=== PATIENT | male | born 1990 | race Caucasian/White ===

== ENCOUNTER → 2023-03-24 15:39 | Outpatient (CLI) | payer OTHER, SELFPAY ==
--- NOTE | 2023-03-24 15:39 | US_ITS ---
FINAL REPORT TECHNIQUE: Ultrasound images of the testicles were obtained bilaterally. Color Doppler images were obtained. CLINICAL HISTORY: .bilateral palpable areas FINDINGS: The testicles are homogeneous. No testicular masses are identified. The right testicle measures 4.4 x 2.0 x 2.7 cm. The left testicle measures 4.7 x 3.3 x 2.8 cm. There are well circumscribed anechoic structures in the epididymal heads bilaterally. Structure on the right measures 1.1 cm. Structure on the left measures 2.8 cm. IMPRESSION: Epididymal cysts bilaterally. Reviewed, Interpreted and Dictated by Seth Wise MD Transcribed by Marjorie Hatfield Authenticated and [facility]
== END ==
PROVIDERS: PCP Family Medicine; Visit Provider Family Medicine
DX: D40.8 Neoplasm of uncertain behavior of other specified male genital organs (principal)
CPT/HCPCS: 76870

== ENCOUNTER 2024-03-21 18:00 | Outpatient (CLI) | payer OTHER, SELFPAY ==
[2024-03-21 18:51] LABS: Basophils # 0.1 K/mm3 (0-0.2); Basophils % 0.8 % (0.1-2.0); Eosinophils # 0.1 K/mm3 (0.0-0.4); Eosinophils % 1.1 % (0.1-12.0); Hematocrit 49.3 % (42.0-52.0); Hemoglobin 16.6 g/dL (14.1-18.0); Lymphocytes # 2.2 K/mm3 (0.7-4.5); Lymphocytes % 24.3 % (10-50); Mean Corpuscular HGB Conc 33.6 g/dL (31.8-35.4); Mean Corpuscular Volume 95.3 fl (80-94); Mean Platelet Volume 8.4 fl (7.4-10.4); Monocytes # 0.5 K/mm3 (0.1-1.0); Monocytes % 5.1 % (1.7-9.3); Neutrophils # 6.3 K/mm3 (1.8-7.8); Neutrophils % 68.7 % (37.0-80.0); Platelet Count 232 K/mm3 (142-424); Red Blood Count 5.18 M/mm3 (4.60-6.20); Red Cell Distribution Width 13.1 % (11.5-17.5); White Blood Count 9.1 K/mm3 (4.8-10.8)
[2024-03-21 19:12] LABS: Alanine Aminotransferase 17 U/L (12-78); Albumin Level 5.1 g/dl (3.5-5.0); Albumin/Globulin Ratio 1.7 (1.1-1.8); Alkaline Phosphatase 65 U/L (38-126); Anion Gap 13.5 mEq/L (5-15); Aspartate Amino Transferase 40 U/L (17-59); Bilirubin,Total 1.4 mg/dl (0.2-1.3); Blood Urea Nitrogen 12 mg/dl (9-20); Carbon Dioxide 29 mmol/L (22.0-30.0); Chloride 106 mmol/L (98-107); Estimated Glomerular Filt Rate 98 ml/min (>60); GFR (African American) 118 ML/MIN (>60); Glucose 90 mg/dl (74-100); Potassium 4.5 mmoL/L (3.5-5.1); Sodium 144 mmol/L (136-145); Total Protein,Serum 8.1 g/dl (6.3-8.2)
[2024-03-21 19:30] LABS: 25-OH Vitamin D, Total 47.7 ng/mL (30-100)
[2024-03-21 19:41] LABS: Thyroid Stimulating Hormone 0.54 uIU/mL (0.465-4.68)
[2024-03-21 20:01] LABS: Vitamin B12 357 pg/mL (239-931)
[2024-03-21 21:03] LABS: Hemoglobin A1C 5.3 % (4.0-6.0)
[2024-03-25 16:39] LABS: HBsAg Screen Negative (Negative); HCV Ab Reactive (Non Reactive); Hep A Ab, IGM Negative (Negative); Hep B Core Ab, IgM Negative (Negative)
== END 2024-03-21 23:59 | disposition home or self-care (01) ==
LOC: LAB.DROPOF 03-22 12:49
PROVIDERS: PCP Nurse Practitioner; Visit Provider Nurse Practitioner
DX: R06.02 Shortness of breath (principal); K21.9 Gastro-esophageal reflux disease without esophagitis; Z13.1 Encounter for screening for diabetes mellitus; Z13.29 Encounter for screening for other suspected endocrine disorder; Z86.19 Personal history of other infectious and parasitic diseases; Z79.899 Other long term (current) drug therapy
CPT/HCPCS: 80053; 80074; 82306; 82607; 83036; 84443; 85025

== ENCOUNTER 2024-04-18 12:02 | Outpatient (CLI) | payer OTHER, SELFPAY ==
[2024-04-18 18:09] LABS: Alanine Aminotransferase 63 U/L (12-78); Albumin Level 4.3 g/dl (3.5-5.0); Albumin/Globulin Ratio 1.6 (1.1-1.8); Alkaline Phosphatase 51 U/L (38-126); Anion Gap 12.4 mEq/L (5-15); Aspartate Amino Transferase 77 U/L (17-59); Basophils % 0.7 % (0.1-2.0); Bilirubin,Total 0.8 mg/dl (0.2-1.3); Blood Urea Nitrogen 13 mg/dl (9-20); Calcium 9.5 mg/dl (8.4-10.2); Carbon Dioxide 27 mmol/L (22.0-30.0); Chloride 104 mmol/L (98-107); Eosinophils # 0.1 K/mm3 (0.0-0.4); Eosinophils % 2.7 % (0.1-12.0); Estimated Glomerular Filt Rate 98 ml/min (>60); GFR (African American) 118 ML/MIN (>60); Globulin 2.7 g/dL (1.3-3.2); Glucose 137 mg/dl (74-100); Hematocrit 48.4 % (42.0-52.0); Hemoglobin 15.3 g/dL (14.1-18.0); Lymphocytes # 1.4 K/mm3 (0.7-4.5); Lymphocytes % 28.7 % (10-50); Mean Corpuscular HGB Conc 31.7 g/dL (31.8-35.4); Mean Corpuscular Hemoglobin 31.5 pg (27.0-31.2); Mean Corpuscular Volume 99.6 fl (80-94); Mean Platelet Volume 10.1 fl (7.4-10.4); Monocytes # 0.2 K/mm3 (0.1-1.0); Monocytes % 4.8 % (1.7-9.3); Platelet Count 231 K/mm3 (142-424); Potassium 4.4 mmoL/L (3.5-5.1); Red Blood Count 4.86 M/mm3 (4.60-6.20); Red Cell Distribution Width 13.5 % (11.5-17.5); Sodium 139 mmol/L (136-145); White Blood Count 4.8 K/mm3 (4.8-10.8)
[2024-04-22 23:15] LABS: HCV Genotype Charge YES; Hepatitis C Genotype 1a (.)
[2024-04-23 08:24] LABS: HIV Screen 4th Generation wRfx Non Reactive; Hep A Ab, Total Negative; Hepatitis B Surface Antigen Negative
[2024-04-23 08:25] LABS: Hep B Core Ab, Total Negative; Hep B Surface Ab, Qual Reactive; Hepatitis C Antibody Reactive
[2024-04-23 08:26] LABS: Alpha 2-Macroglobulins, Qn 191; Fibrosis Score 0.2; Fibrosis Stage F0-NO FIBROSIS; Haptoglobin 23; Necroinflammat Activity Grade A1-A2; Necroinflammat Activity Score 0.37
[2024-04-23 08:27] LABS: ALT (SGPT) P5P 68; Apolipoprotein A-1 151; Bilirubin, Total 0.3; GGT 21
== END 2024-04-18 23:59 | disposition home or self-care (01) ==
LOC: LAB.DROPOF 04-19 12:02
PROVIDERS: PCP Nurse Practitioner Family; Visit Provider Nurse Practitioner Family
DX: Z86.19 Personal history of other infectious and parasitic diseases (principal); B18.2 Chronic viral hepatitis C; R74.01 Elevation of levels of liver transaminase levels; Z79.899 Other long term (current) drug therapy; Z11.4 Encounter for screening for human immunodeficiency virus [HIV]; Z87.898 Personal history of other specified conditions
CPT/HCPCS: 80053; 81596; 85025; 86703; 86704; 86706; 86708; 87340; 87380; 87522; 87902; G0432

== ENCOUNTER 2024-10-04 12:05 | Outpatient (CLI) | payer OTHER, SELFPAY ==
[2024-10-04 18:39] LABS: Basophils % 0.8 % (0.1-2.0); Eosinophils # 0.1 K/mm3 (0.0-0.4); Hematocrit 50.8 % (42.0-52.0); Hemoglobin 16.9 g/dL (14.1-18.0); Lymphocytes # 1.9 K/mm3 (0.7-4.5); Lymphocytes % 37.8 % (10-50); Mean Corpuscular HGB Conc 33.3 g/dL (31.8-35.4); Mean Corpuscular Hemoglobin 31.4 pg (27.0-31.2); Mean Corpuscular Volume 94.3 fl (80-94); Mean Platelet Volume 7.9 fl (7.4-10.4); Monocytes # 0.3 K/mm3 (0.1-1.0); Monocytes % 6.3 % (1.7-9.3); Neutrophils # 2.7 K/mm3 (1.8-7.8); Neutrophils % 53.2 % (37.0-80.0); Platelet Count 253 K/mm3 (142-424); Red Blood Count 5.39 M/mm3 (4.60-6.20); White Blood Count 5.2 K/mm3 (4.8-10.8)
[2024-10-04 19:02] LABS: Alanine Aminotransferase 13 U/L (12-78); Albumin Level 4.5 g/dl (3.5-5.0); Albumin/Globulin Ratio 1.9 (1.1-1.8); Alkaline Phosphatase 48 U/L (38-126); Anion Gap 9.4 mEq/L (5-15); Aspartate Amino Transferase 33 U/L (17-59); Bilirubin,Total 1.1 mg/dl (0.2-1.3); Blood Urea Nitrogen 8 mg/dl (9-20); Calcium 9.6 mg/dl (8.4-10.2); Carbon Dioxide 30 mmol/L (22.0-30.0); Chloride 108 mmol/L (98-107); Estimated Glomerular Filt Rate 97 ml/min (>60); GFR (African American) 118 ML/MIN (>60); Globulin 2.4 g/dL (1.3-3.2); Glucose 75 mg/dl (74-100); Potassium 4.4 mmoL/L (3.5-5.1); Sodium 143 mmol/L (136-145); Total Protein,Serum 6.9 g/dl (6.3-8.2)
[2024-10-04 19:41] LABS: HIV (1&2) Antibody Rapid NONREACTIVE (NONREACTIVE)
[2024-10-09 14:12] LABS: HBsAg Screen Negative (Negative); HCV Ab Reactive (Non Reactive); Hep A Ab, IGM Negative (Negative); Hep B Core Ab, IgM Negative (Negative)
== END 2024-10-04 23:59 | disposition home or self-care (01) ==
LOC: LAB.DROPOF 10-05 15:28
PROVIDERS: PCP Family Medicine; Visit Provider Family Medicine
DX: B18.2 Chronic viral hepatitis C (principal)
CPT/HCPCS: 80053; 80074; 85025; 87389; 87522